=== PATIENT | male | born 1970 | race Caucasian/White ===

== ENCOUNTER 2021-02-06 02:02 | Emergency (ER) | payer MEDICAID ==
[~2021-02-06] VITALS: Ht 182.9 cm; Wt 92.0 kg
[~2021-02-06 02:02] MED LIST: NO HOME MEDS
[2021-02-06] MEDS ORDERED: ondansetron/PF 4mg/2ml inj IV ONE ×2 (02:25→04:15)
[2021-02-06] MEDS ORDERED: ketorolac trometh. 30mg/ml inj. IV ONE (02:25)
[2021-02-06] MEDS ORDERED: normal saline 1000ML IV soln IVB ONE (02:25)
[2021-02-06 02:41] LABS: BASOPHILS % (AUTO) 0.6 % (0-1); EOSINOPHILS # (AUTO) 0.1 X10'3 (0-0.9); EOSINOPHILS % (AUTO) 2.5 % (0-6); HEMATOCRIT 43.5 % (42.0-52.0); HEMOGLOBIN 14.4 g/dl (14.0-17.9); LYMPHOCYTES % (AUTO) 17.7 % (21-51); MEAN CORPUSCULAR HEMOGLOBIN 29.4 PG (27.0-31.0); MEAN CORPUSCULAR HGB CONC 33.2 g/dL (33.0-36.5); MEAN CORPUSCULAR VOLUME 88.6 FL (78-98); MONOCYTES # (AUTO) 0.6 X10'3 (0-0.9); MONOCYTES % (AUTO) 9.9 % (2-12); NEUTROPHILS # (AUTO) 4.1 X10'3 (1.8-7.7); NEUTROPHILS % (AUTO) 69.3 % (42-75); PLATELET COUNT 231 X10'3 (140-440); RED BLOOD COUNT 4.91 X10'6 (4.70-6.10); RED CELL DISTRIBUTION WIDTH 14.6 % (11.5-14.5); WHITE BLOOD COUNT 5.9 X10'3 (4.5-11.0)
[2021-02-06 02:52] LABS: ALANINE AMINOTRANSFERASE 38 U/L (12-78); ALBUMIN 3.6 G/DL (3.4-5.0); ALKALINE PHOSPHATASE 82 IU/L (46-116); ANION GAP 8 (8-16); ASPARTATE AMINO TRANSFERASE 27 U/L (10-37); BILIRUBIN,TOTAL 0.3 MG/DL (0.1-1.0); BLOOD UREA NITROGEN 14 MG/DL (7-18); CALCIUM 9.3 MG/DL (8.5-10.1); CHLORIDE 106 MMOL/L (99-107); GLUCOSE 72 MG/DL (70-104); LIPASE 72 U/L (73-393); POTASSIUM 3.5 MMOL/L (3.5-5.1); SODIUM 145 MMOL/L (135-145); TOTAL CARBON DIOXIDE 31.3 MMOL/L (24-32); TOTAL PROTEIN 7.3 G/DL (6.4-8.2); eGFR 54 ML/MIN
--- NOTE | 2021-02-06 03:05 | NUR ---
Pt off for CT scan.
[2021-02-06 04:05] LABS: CLARITY,URINE CLEAR (Clear); COLOR,URINE YELLOW (Yellow); GLUCOSE, URINE NEGATIVE (Neg); KETONES,URINE NEGATIVE (Neg); LEUKOCYTE ESTERASE ,URINE NEGATIVE (Neg); NITRITES, URINE NEGATIVE (Neg); OCCULT BLOOD,URINE MODERATE (Neg); PROTEIN,URINE NEGATIVE (Neg); UROBILINOGEN,URINE 0.2 E.U/dL (0.2-1.0)
[2021-02-06 04:08] LABS: UA COLLECTION TYPE CLN CATCH MIDSTREAM
[2021-02-06] MEDS ORDERED: KETO10TA2 PO (04:12)
[2021-02-06] MEDS ORDERED: ONDA4TAB6 PO (04:12)
[2021-02-06] MEDS ORDERED: TADA20TA PO (04:12)
[2021-02-06] MEDS ORDERED: HYDR-3965 PO (04:12)
[2021-02-06] MEDS ORDERED: HYDROcodone/acetaminophen 10/325mg tab PO ONE (04:15)
[2021-02-06 04:18] LABS: BACTERIA,URINE NONE SEEN /HPF (Neg); RBC,URINE NONE SEEN /HPF (0-2); SQUAMOUS EPITHELIAL CELL,UR FEW /LPF (FEW); WBC,URINE 0-4 /HPF (0-4)
[2021-02-06 04:47] VITALS: BP 137/97
== END 2021-02-06 04:57 | disposition home or self-care (01) ==
LOC: ER 02:02
DX: N13.2 Hydronephrosis with renal and ureteral calculous obstruction (principal); Z79.899 Other long term (current) drug therapy
CPT/HCPCS: 36415; 74176; 80053; 81001; 83690; 85025; 96374; 96375; 96376; 99284; J1885; J2405; J7030

== ENCOUNTER 2021-03-05 01:42 | Emergency (ER) | payer MEDICAID ==
[~2021-03-05] VITALS: Ht 182.9 cm; Wt 101.5 kg
[~2021-03-05 01:42] MED LIST changes: +HYDR-3965 PO; +KETO10TA2 PO; +ONDA4TAB6 PO; +TADA20TA PO
[2021-03-05 01:44] VITALS: BP 168/113
[2021-03-05] MEDS ORDERED: PENI500T2 PO (02:21)
[2021-03-05] MEDS ORDERED: ibuprofen tablet 400 MG TABLET PO ONE (02:25)
[2021-03-05] MEDS ORDERED: penicillin V potassium 500mg tablet PO ONE (02:25)
== END 2021-03-05 02:34 | disposition home or self-care (01) ==
LOC: ER 01:42
DX: K05.10 Chronic gingivitis, plaque induced (principal); K02.9 Dental caries, unspecified; K08.89 Other specified disorders of teeth and supporting structures; Z87.442 Personal history of urinary calculi; Z79.2 Long term (current) use of antibiotics; Z79.899 Other long term (current) drug therapy
CPT/HCPCS: 99283

== ENCOUNTER 2021-03-10 01:45 | Emergency (ER) | payer MEDICAID ==
[~2021-03-10] VITALS: Ht 182.9 cm; Wt 90.9 kg
[~2021-03-10 01:45] MED LIST changes: +PENI500T2 PO
[2021-03-10 04:33] VITALS: BP 170/102
== END 2021-03-10 04:34 | disposition home or self-care (01) ==
LOC: ER 01:46
DX: M70.22 Olecranon bursitis, left elbow (principal); Y93.89 Activity, other specified; Z87.442 Personal history of urinary calculi; Z56.0 Unemployment, unspecified; Z79.899 Other long term (current) drug therapy
CPT/HCPCS: 73080; 99283

== ENCOUNTER 2021-05-29 00:53 | Emergency (ER) | payer MEDICAID ==
[~2021-05-29] VITALS: Ht 182.9 cm; Wt 95.0 kg
[~2021-05-29 00:53] MED LIST changes: -HYDR-3965 PO; -PENI500T2 PO
[2021-05-29 02:30] LABS: BASOPHILS % (AUTO) 0.4 % (0-1); EOSINOPHILS # (AUTO) 0.2 X10'3 (0-0.9); EOSINOPHILS % (AUTO) 3.2 % (0-6); HEMATOCRIT 43.7 % (42.0-52.0); HEMOGLOBIN 14.7 g/dl (14.0-17.9); LYMPHOCYTES # (AUTO) 1.1 X10'3 (1.1-4.8); LYMPHOCYTES % (AUTO) 15.6 % (21-51); MEAN CORPUSCULAR HEMOGLOBIN 29.4 PG (27.0-31.0); MEAN CORPUSCULAR HGB CONC 33.7 g/dL (33.0-36.5); MEAN CORPUSCULAR VOLUME 87.2 FL (78-98); MEAN PLATELET VOLUME 9.2 FL (7.4-10.4); MONOCYTES # (AUTO) 0.6 X10'3 (0-0.9); MONOCYTES % (AUTO) 7.9 % (2-12); NEUTROPHILS # (AUTO) 5.3 X10'3 (1.8-7.7); NEUTROPHILS % (AUTO) 72.9 % (42-75); PLATELET COUNT 232 X10'3 (140-440); RED BLOOD COUNT 5.01 X10'6 (4.70-6.10); RED CELL DISTRIBUTION WIDTH 14.5 % (11.5-14.5); WHITE BLOOD COUNT 7.3 X10'3 (4.5-11.0)
[2021-05-29] MEDS ORDERED: normal saline 1000ml 1,000 ML IV ONE (02:30)
[2021-05-29] MEDS ORDERED: ketorolac trometh. 30mg/ml inj. IV ONE (02:30)
[2021-05-29] MEDS ORDERED: ondansetron/PF 4mg/2ml inj IV ONE (02:30)
[2021-05-29 02:42] LABS: ALANINE AMINOTRANSFERASE 35 U/L (12-78); ALBUMIN 3.7 G/DL (3.4-5.0); ALBUMIN/GLOBULIN RATIO 0.9 (1.1-1.5); ALKALINE PHOSPHATASE 89 IU/L (46-116); ANION GAP 6 (8-16); ASPARTATE AMINO TRANSFERASE 22 U/L (10-37); BILIRUBIN,TOTAL 0.2 MG/DL (0.1-1.0); BLOOD UREA NITROGEN 17 MG/DL (7-18); BUN/CREATININE RATIO 12.3 (5.4-32.0); CALCIUM 9.1 MG/DL (8.5-10.1); CHLORIDE 107 MMOL/L (99-107); CREATININE 1.38 MG/DL (0.60-1.10); GLUCOSE 92 MG/DL (70-104); LIPASE 66 U/L (73-393); POTASSIUM 4.1 MMOL/L (3.5-5.1); SODIUM 145 MMOL/L (135-145); TOTAL CARBON DIOXIDE 32.5 MMOL/L (24-32); TOTAL PROTEIN 7.8 G/DL (6.4-8.2); eGFR 55 ML/MIN
[2021-05-29] MEDS ORDERED: IBUP-1986 PO (03:53)
[2021-05-29] MEDS ORDERED: FLO0.4C PO (03:53)
[2021-05-29] MEDS ORDERED: OXYC-145 PO (03:53)
[2021-05-29] MEDS ORDERED: ONDA4TAB12 PO (03:53)
[2021-05-29 04:02] LABS: CLARITY,URINE CLEAR (Clear); COLOR,URINE YELLOW (Yellow); GLUCOSE, URINE NEGATIVE (Neg); KETONES,URINE NEGATIVE (Neg); LEUKOCYTE ESTERASE ,URINE TRACE (Neg); NITRITES, URINE NEGATIVE (Neg); OCCULT BLOOD,URINE NEGATIVE (Neg); PROTEIN,URINE NEGATIVE (Neg); UROBILINOGEN,URINE 0.2 E.U/dL (0.2-1.0)
[2021-05-29 04:46] LABS: UA COLLECTION TYPE CLN CATCH MIDSTREAM
[2021-05-29 04:48] LABS: BACTERIA,URINE NONE SEEN /HPF (Neg)
[2021-05-29 05:08] VITALS: BP 152/104
[2021-05-29 13:30] LABS: RBC,URINE 0-2 /HPF (0-2); SQUAMOUS EPITHELIAL CELL,UR FEW /LPF (FEW); WBC,URINE 0-4 /HPF (0-4)
== END 2021-05-29 05:09 | disposition home or self-care (01) ==
LOC: ER 00:53
DX: N23 Unspecified renal colic (principal); N20.0 Calculus of kidney; Z87.442 Personal history of urinary calculi; Z56.0 Unemployment, unspecified; Z79.899 Other long term (current) drug therapy
CPT/HCPCS: 36415; 74176; 80053; 81001; 83690; 85025; 87088; 96361; 96374; 96375; 99284; J1885; J2405; J7030

== ENCOUNTER 2021-10-24 10:43 | Emergency (ER) | payer MEDICAID ==
[~2021-10-24] VITALS: Ht 182.9 cm; Wt 90.9 kg
[~2021-10-24 10:43] MED LIST changes: +IBUP-1986 PO; +ONDA4TAB12 PO; +OXYC-145 PO
[2021-10-24 10:48] VITALS: BP 178/121
[2021-10-24 11:13] LABS: BASOPHILS % (AUTO) 0.6 % (0-1); MEAN PLATELET VOLUME 9.2 FL (7.4-10.4); WHITE BLOOD COUNT 4.3 X10'3 (4.5-11.0)
[2021-10-24 11:15] LABS: EOSINOPHILS # (AUTO) 0.1 X10'3 (0-0.9); EOSINOPHILS % (AUTO) 3.5 % (0-6); HEMATOCRIT 40.1 % (42.0-52.0); HEMOGLOBIN 13.5 g/dl (14.0-17.9); LYMPHOCYTES % (AUTO) 22.3 % (21-51); MEAN CORPUSCULAR HEMOGLOBIN 29.5 PG (27.0-31.0); MEAN CORPUSCULAR HGB CONC 33.8 g/dL (33.0-36.5); MEAN CORPUSCULAR VOLUME 87.2 FL (78-98); MONOCYTES # (AUTO) 0.3 X10'3 (0-0.9); MONOCYTES % (AUTO) 7.1 % (2-12); NEUTROPHILS # (AUTO) 2.8 X10'3 (1.8-7.7); NEUTROPHILS % (AUTO) 66.5 % (42-75); PLATELET COUNT 280 X10'3 (140-440); RED BLOOD COUNT 4.59 X10'6 (4.70-6.10); RED CELL DISTRIBUTION WIDTH 13.7 % (11.5-14.5)
[2021-10-24 11:24] LABS: ALANINE AMINOTRANSFERASE 40 U/L (12-78); ALBUMIN 3.6 G/DL (3.4-5.0); ALBUMIN/GLOBULIN RATIO 0.8 (1.1-1.5); ALKALINE PHOSPHATASE 77 IU/L (46-116); ANION GAP 8 (8-16); ASPARTATE AMINO TRANSFERASE 25 U/L (10-37); BILIRUBIN,TOTAL 0.2 MG/DL (0.1-1.0); BLOOD UREA NITROGEN 14 MG/DL (7-18); BUN/CREATININE RATIO 11.6 (5.4-32.0); CALCIUM 9.2 MG/DL (8.5-10.1); CHLORIDE 103 MMOL/L (99-107); CREATININE 1.21 MG/DL (0.60-1.10); GLUCOSE 107 MG/DL (70-104); LIPASE 78 U/L (73-393); SODIUM 142 MMOL/L (135-145); TOTAL CARBON DIOXIDE 31.3 MMOL/L (24-32); TOTAL PROTEIN 8.1 G/DL (6.4-8.2); eGFR 64 ML/MIN
[2021-10-24 11:35] LABS: CLARITY,URINE TURBID (Clear); COLOR,URINE YELLOW (Yellow); GLUCOSE, URINE NEGATIVE (Neg); KETONES,URINE NEGATIVE (Neg); LEUKOCYTE ESTERASE ,URINE NEGATIVE (Neg); NITRITES, URINE NEGATIVE (Neg); OCCULT BLOOD,URINE LARGE (Neg); PH,URINE 7.5 (4.8-8.0); PROTEIN,URINE TRACE mg/dl (Neg); UA COLLECTION TYPE VOIDED; UROBILINOGEN,URINE 0.2 E.U/dL (0.2-1.0)
[2021-10-24] MEDS ORDERED: ketorolac tromethamine 15mg/ml inj. IV ONE (11:50)
[2021-10-24] MEDS ORDERED: ondansetron/PF 4mg/2ml inj IV ONE (11:50)
[2021-10-24] MEDS ORDERED: morphine 4 MG/ML inj SYRINge IV ONE (11:50)
[2021-10-24] MEDS ORDERED: normal saline 1000ML IV soln IVB ONE (11:50)
[2021-10-24 11:52] LABS: SQUAMOUS EPITHELIAL CELL,UR FEW /LPF (FEW)
[2021-10-24 11:53] LABS: HYALINE CASTS 0-3 /LPF (NEGATIVE)
[2021-10-24 11:58] LABS: AMORPHOUS PHOSPHATES 3+; CAL OXALATE CRYSTALS FEW /HPF (NEGATIVE)
[2021-10-24 11:59] LABS: RBC,URINE TNTC /HPF (0-2); WBC,URINE 0-4 /HPF (0-4)
[2021-10-24 12:00] LABS: BACTERIA,URINE FEW /HPF (Neg)
[2021-10-24] MEDS ORDERED: ONDA8TAB13 PO (12:57)
[2021-10-24] MEDS ORDERED: FLO0.4C PO (12:57)
[2021-10-24] MEDS ORDERED: HYDR-3965 PO (12:57)
== END 2021-10-24 13:40 | disposition home or self-care (01) ==
LOC: ER 10:43
DX: N20.0 Calculus of kidney (principal); R10.32 Left lower quadrant pain; R31.9 Hematuria, unspecified; Z87.442 Personal history of urinary calculi; Z56.0 Unemployment, unspecified; Z79.899 Other long term (current) drug therapy
CPT/HCPCS: 36415; 74176; 80053; 81001; 83690; 85025; 96374; 96375; 99284; J1885; J2270; J2405; J7030

== ENCOUNTER 2024-01-14 04:09 | Emergency (ER) | payer MEDICAID ==
[~2024-01-14] VITALS: Ht 182.9 cm; Wt 100.0 kg
[~2024-01-14 04:09] MED LIST changes: +ONDA8TAB13 PO
[2024-01-14 05:01] LABS: BASOPHILS % (AUTO) 0.5 % (0-1); EOSINOPHILS # (AUTO) 0.2 X10'3 (0-0.9); EOSINOPHILS % (AUTO) 2.5 % (0-6); HEMATOCRIT 46.1 % (42.0-52.0); HEMOGLOBIN 15.5 g/dl (14.0-17.9); LYMPHOCYTES # (AUTO) 1.5 X10'3 (1.1-4.8); LYMPHOCYTES % (AUTO) 22.9 % (21-51); MEAN CORPUSCULAR HEMOGLOBIN 29.6 PG (27.0-31.0); MEAN CORPUSCULAR HGB CONC 33.5 g/dL (33.0-36.5); MEAN CORPUSCULAR VOLUME 88.3 FL (78-98); MEAN PLATELET VOLUME 9.5 FL (7.4-10.4); MONOCYTES # (AUTO) 0.5 X10'3 (0-0.9); MONOCYTES % (AUTO) 7.6 % (2-12); NEUTROPHILS # (AUTO) 4.5 X10'3 (1.8-7.7); NEUTROPHILS % (AUTO) 66.5 % (42-75); PLATELET COUNT 249 X10'3 (140-440); RED BLOOD COUNT 5.22 X10'6 (4.70-6.10); RED CELL DISTRIBUTION WIDTH 14.7 % (11.5-14.5); WHITE BLOOD COUNT 6.8 X10'3 (4.5-11.0)
[2024-01-14 05:11] LABS: ALANINE AMINOTRANSFERASE 34 U/L (12-78); ALBUMIN 3.9 G/DL (3.4-5.0); ALKALINE PHOSPHATASE 73 IU/L (46-116); ANION GAP 10 (8-16); ASPARTATE AMINO TRANSFERASE 19 U/L (10-37); BILIRUBIN,TOTAL 0.2 MG/DL (0.1-1.0); BLOOD UREA NITROGEN 21 MG/DL (7-18); BUN/CREATININE RATIO 14.1 (10.0-20.0); CALCIUM 9.4 MG/DL (8.5-10.1); CHLORIDE 106 MMOL/L (99-107); CREATININE 1.49 MG/DL (0.60-1.10); GLUCOSE 101 MG/DL (70-104); LIPASE 32 U/L (16-77); POTASSIUM 4.5 MMOL/L (3.5-5.1); SODIUM 143 MMOL/L (135-145); TOTAL CARBON DIOXIDE 27.4 MMOL/L (24-32); TOTAL PROTEIN 7.7 G/DL (6.4-8.2); eCRCL 64 ML/MIN; eGFR 50 ML/MIN
[2024-01-14] MEDS: morphine 4 MG/ML inj SYRINge IV ONE (05:47)
[2024-01-14] MEDS: ondansetron/PF 4mg/2ml inj IV ONE (05:47)
[2024-01-14] MEDS: acetaminophen 1,000mg/100ml IV 100 ML IV STA (06:44)
[2024-01-14 07:36] LABS: BILIRUBIN,URINE NEGATIVE (Neg); CLARITY,URINE SLIGHTLY CLOUDY (Clear); COLOR,URINE YELLOW (Yellow); GLUCOSE, URINE NEGATIVE (Neg); KETONES,URINE NEGATIVE (Neg); LEUKOCYTE ESTERASE ,URINE TRACE (Neg); NITRITES, URINE NEGATIVE (Neg); OCCULT BLOOD,URINE LARGE (Neg); PH,URINE 6.5 (4.8-8.0); PROTEIN,URINE NEGATIVE (Neg); UROBILINOGEN,URINE 0.2 E.U/dL (0.2-1.0)
[2024-01-14 07:38] LABS: UA COLLECTION TYPE CLN CATCH MIDSTREAM
[2024-01-14 07:46] LABS: BACTERIA,URINE FEW /HPF (Neg); MUCUS STRANDS MODERATE /LPF (Neg); RBC,URINE 20-50 /HPF (0-2)
[2024-01-14 07:47] LABS: SQUAMOUS EPITHELIAL CELL,UR FEW /LPF (FEW)
[2024-01-14 07:49] LABS: COARSE GRANULAR CAST 0-3 /LPF (NEGATIVE); TRANSITIONAL EPI CELLS,URINE FEW /HPF
[2024-01-14] MEDS ORDERED: IBUP-1984 PO (08:00)
[2024-01-14] MEDS ORDERED: ONDA4TAB12 PO (08:00)
[2024-01-14] MEDS ORDERED: FLO0.4C PO (08:00)
[2024-01-14] MEDS ORDERED: HYDR-3965 PO (08:00)
[2024-01-14 08:16] VITALS: BP 150/105; PULSE 86; RESP 16; O2SAT 96
[2024-01-14 08:23] VITALS: TEMP 98.9
== END 2024-01-14 08:38 | disposition home or self-care (01) ==
LOC: ER 04:13
DX: N23 Unspecified renal colic (principal); I10 Essential (primary) hypertension; F17.200 Nicotine dependence, unspecified, uncomplicated; Z79.899 Other long term (current) drug therapy; Z87.442 Personal history of urinary calculi; Z87.440 Personal history of urinary (tract) infections; Z56.0 Unemployment, unspecified
CPT/HCPCS: 36415; 74176; 80053; 81001; 83690; 85025; 87088; 96365; 96375; 99285; J0131; J2270; J2405

== ENCOUNTER 2025-04-29 17:25 | Emergency (ER) | payer MEDICAID ==
[~2025-04-29] VITALS: Ht 182.9 cm; Wt 100.0 kg
[~2025-04-29 17:25] MED LIST changes: +ONDA-243 PO; +ONDA-245 PO; -ONDA4TAB12 PO; -ONDA8TAB13 PO
[2025-04-29 17:49] VITALS: BP 177/112; PULSE 98; RESP 16; TEMP 98; O2SAT 99
[2025-04-29] MEDS: dexamethasone sod phosphate 10mg/ml inj PO STA (19:10)
[2025-04-29] MEDS ORDERED: PRED20TA PO (19:35)
--- NOTE | 2025-04-29 19:35 | Physician Documentation ---
History of Present Illness ~ Chief Complaint: Bite-insect Stated Complaint: "STUNG BY A BEE YESTERDAY" Time Seen by MD: 18:00 Primary Medical Doctor: None HPI Patient is seen today with complaints of a wasp bite to his upper lip that is now swollen. Patient states this occurred yesterday. Patient states he took some Benadryl this morning without any significant improvement. Patient has no other concern or complaint at this time. Tetanus within 5 years?: Yes Medication Reconciliation Allergies: Coded Allergies: No Known Allergies (Unverified , 04/29/25) Scheduled Ketorolac Tromethamine (Ketorolac Tromethamine), 1 TAB PO Q8H Ondansetron Hcl (Zofran), 1 TAB PO Q8H Tadalafil (Cialis), 1 TAB PO DAILY Scheduled PRN Ibuprofen (Ibuprofen), 1 TAB PO Q8H PRN for mild to moderate pain 1-6 ONDANSETRON ODT 4mg tablet (Ondansetron Odt), 1 TABLET PO Q6H PRN for nausea/vomiting ONDANSETRON ODT 4mg tablet (Ondansetron Odt), 1 TAB PO Q6H PRN PRN for nausea/vomiting Ondansetron 8mg ODT (Ondansetron Odt), 1 TAB PO TID PRN for nausea/vomiting Oxycodone HCl/Acetaminophen (Percocet 5-325 mg Tablet), 1-2 TABLET PO Q6H PRN for severe pain (7-10) Miscellaneous Medications Home Med List (No Home Medications), (Reported) Past Medical History Past Medical History: Hypertension, *RENAL/*, Kidney Stones, UTI Past Surgical History: no surgical history Alcohol Use: None Drug Use: none Lives with: Spouse Lives In: Home Occupation: unemployed Review of Systems Constitutional: Denies: chills, fever, weakness Eyes: Denies: pain, blurred vision ENT: Denies: ear pain, nose pain, throat pain, mouth pain Respiratory: Denies: cough, shortness of breath Cardiovascular: Denies: chest pain, palpitations Gastrointestinal: Denies: abdominal pain, nausea, vomiting Genitourinary: Denies: burning, dysuria Male Genitalia: Denies: penile discharge, testicular pain Neurological: Denies: headache, dizziness Musculoskeletal: Denies: pain, swelling Integumentary: Denies: rash, lesions Allergic/Immunologic: Denies: hives, itching Hematologic/Lymphatic: Denies: no symptoms reported Psychiatric: Denies: depression, anxiety Physical Exam Vital Signs: Temperature: 98.0, Source: Oral, Heart Rate: 98, Respiratory Rate: 16, BP: 177/112, Pulse Oximetry: 99, Weight: 100.000 Oxygen Flow Rate: 0 Physical Exam General: Awake and Alert, no acute distress. HEENT: Patient on exam has significant swelling in his upper lip without any swelling of the lower lip. Airway is completely patent. Patient has no stridor. PERRLA, EOM intact bilaterally. Conjunctiva pink, Sclera clear, Mucus Membranes moist. Neck: Supple without masses and tenderness. Resp: Unlabored. Lungs clear to auscultation bilaterally. Heart: Regular Rate and rhythm, normal S1 and S2 without murmur, rub or gallop. Extremities: No cyanosis,clubbing or edema. Skin: Warm and Dry. Progress Results/Orders Results/Orders Completed Orders - BETO CABRAL Dexamethasone Inj (Decadron 10mg/Ml Inj) (04/29/25 19:02) Medications Received in ER Medications (Trade) Dose Ordered Sig/Priyanka Route PRN Reason Start Time Stop Time Status Last Admin Dose Admin (Decadron 10mg/ ml inj) 15 mg ONCE STAT PO 04/29/25 19:02 04/29/25 19:04 DC 04/29/25 19:10 15 MG Vital Signs 04/29/25 17:49 Temp 98.0 Pulse 98 Resp 16 B/P (MAP) 177/112 Pulse Ox 99 O2 Flow Rate 0 Medical Decision Making Findings Patient is seen today with complaints of a wasp bite to his upper lip that is now swollen. Patient states this occurred yesterday. Patient states he took some Benadryl this morning without any significant improvement. Patient has no other concern or complaint at this time. Patient was given dexamethasone by mouth liquid 15 mg in the ED tonight. Prescription of prednisone 40 mg by mouth once a day for five days sent to patient's pharmacy to be used as directed. Patient will continue Benadryl as needed. Return to ED with any worsening, concerning or changing symptoms. Follow up with primary care in 2-5 days if no better as needed sooner. Departure Disposition: HOME / SELF CARE / HOMELESS Impression: Primary Impression: Bee sting Qualified Codes: T63.441A - Toxic effect of venom of bees, accidental (unintentional), initial encounter Additional Impression: Lip swelling Condition: Stable Discharge Instructions: Insect Bite, Adult, [id number] Additional Instructions: Patient was given dexamethasone by mouth liquid 15 mg in the ED tonight. Prescription of prednisone 40 mg by mouth once a day for five days sent to patient's pharmacy to be used as directed. Patient will continue Benadryl as needed. Return to ED with any worsening, concerning or changing symptoms. Follow up with primary care in 2-5 days if no better as needed sooner. Referrals: NO PRIMARY CARE PROVIDER (PCP) Prescriptions Prednisone* (Prednisone*) 20 Mg Tablet 2 TAB PO DAILY for 5 Days, #10 TAB Prov: BETO CABRAL 04/29/25 Signature Scribe Signature: No scribe Attestation: No scribe BETO CABRAL Apr 29, 2025 19:35
== END 2025-04-29 19:42 | disposition home or self-care (01) ==
LOC: ER 17:26
DX: T63.441A Toxic effect of venom of bees, accidental (unintentional), initial encounter (principal); R22.0 Localized swelling, mass and lump, head; I10 Essential (primary) hypertension; Z79.899 Other long term (current) drug therapy; Z56.0 Unemployment, unspecified; Z87.442 Personal history of urinary calculi; Y92.89 Other specified places as the place of occurrence of the external cause
CPT/HCPCS: 99283; J1100